=== PATIENT | female | born 1975 | race African-American/Black ===

== ENCOUNTER → 2016-12-28 | Day surgery (SDC) | payer OTHER ==
[~2016-12-28] VITALS: Ht 157.5 cm; Wt 68.0 kg
[~2016-12-28] MED LIST: ADVAIR 100-501 EACH INH; HYDROCHLOROTHIA25 M1 PO; NORVASC5 M1 PO; PROAIR HFA8.5 GM INH
--- NOTE | 2016-12-28 11:15 | Operative Report ---
Operative/Inv Procedure Report Surgery Date: 12/28/16 Name of Procedure: Breast biopsy with wire localization Pre-Operative Diagnosis: Right breast fibroepithelial lesion Post-Operative Diagnosis: Same Estimated Blood Loss: less than 50ml Surgeon/Vest Backer: HUE MARTINEZ MD Anesthesia: local monitored anesthesi Specimens: Right breast mass Operative/Procedure Note Note: Patient brought to the operating room on 12/28/2016 for excision of a fibroepithelial lesion. Wire localization was performed and the films reviewed. 2 g of Ancef was given in the right breast is prepped and draped in a sterile fashion using ChloraPrep. Local anesthesia 1% lidocaine mixed half percent Marcaine was given and a periareolar incision was made. The tissue is dissected up to the wire and the wire was brought into the incision. Wire insertion site was extended during the course of dissection. The breast tissue was grasped using an Allis clamp and the mass was dissected. The specimen was removed and marked for orientation as margin map. Intraoperative x-ray confirmed the presence of the clip in specimen. Hemostasis was achieved. Deep tissue was approximated using interrupted Vicryl sutures. The wire insertion site was closed using interrupted Vicryl suture. The skin incisions were closed using interrupted Vicryl suture. Dermabond was used over both incisions. Patient was transferred to the recovery room in satisfactory condition having tolerated the procedure well.
--- NOTE | 2016-12-28 12:29 | ULTRASOUND CBW REPORT ---
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 Preoperative needle localization is requested. COMPARISON: Prior studies done on 10/11/2016, 09/21/2016 and 09/12/2016. TECHNIQUE AND FINDINGS: The details of the procedure, as well as the risks, benefits, and alternatives to the procedure were explained to the patient in detail and all of her questions were answered, after which, written informed consent was obtained. Prior to the procedure, sonography revealed a 0.5 x 0.4 x 0.5 cm hypoechoic mass containing a tissue marker at 12 o'clock, 8 cm from the nipple. Time out was performed, the lesion intended for needle localization was targeted and the skin of the right breast was then prepped and draped in the usual sterile fashion. Using sonographic guidance, sterile technique and buffered 2% lidocaine without epinephrine for local anesthesia, a 5 cm Kopans needle was placed within the targeted lesion at 12 o'clock, 8 cm from the nipple. The patient tolerated the procedure well.. The single view mammogram further confirmed accurate placement of the needle within the intended mass. Appropriate adjustment was made. Previously placed tissue marker was also identified adjacent to the needle. The worksheet/mammogram was appropriately labeled and was sent to the OR with the patient. Subsequently, following excision of the mass, the specimen radiography was performed which revealed the target within the specimen with the intact wire and the previously placed tissue marker within the mass. IMPRESSION: 1. 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 2. Mammographic confirmation of accurate needle localization along with appropriate marking for presurgical roadmap with a worksheet. 3. Final specimen radiograph confirming complete, adequate excision of the mass and removal of the previously placed tissue marker and intact wire. The surgical specimen finding was reviewed with Dr. Youngblood immediately following completion of the excision.
== END ==
LOC: STS 04:15 → CBW.IIU 08:00 → STS 08:00 → CBW.MAMMO 08:30
DX: N60.21 Fibroadenosis of right breast (principal); I10 Essential (primary) hypertension; J45.909 Unspecified asthma, uncomplicated; F17.200 Nicotine dependence, unspecified, uncomplicated
CPT/HCPCS: 76942; 81025; G0206-RT; G0279; J0690; J2001; J2250